=== PATIENT | female | born 1980 | race Caucasian/White ===

== ENCOUNTER 2018-06-02 20:31 | Emergency (ER) | payer OTHER ==
[~2018-06-02] VITALS: Ht 152.4 cm; Wt 111.1 kg
[2018-06-02] MEDS ORDERED: ACETAMINOPHEN-1 EAC1 PO (20:53)
[2018-06-02] MEDS ORDERED: NAPROSYN500 MG PO (20:53)
[2018-06-02] MEDS ORDERED: IRON325 (20:56)
[2018-06-02] MEDS ORDERED: LISINOPRIL20 MG (20:56)
[2018-06-02] MEDS ORDERED: EFFEXOR XR75 MG (20:57)
[2018-06-02 21:10] VITALS: BP 145/76
== END 2018-06-02 21:10 | disposition home or self-care (01) ==
LOC: M.ERS 20:31
DX: S16.1XXA Strain of muscle, fascia and tendon at neck level, initial encounter (principal); Z88.2 Allergy status to sulfonamides; Z88.8 Allergy status to other drugs, medicaments and biological substances; V89.2XXA Person injured in unspecified motor-vehicle accident, traffic, initial encounter; Y92.89 Other specified places as the place of occurrence of the external cause; Y93.89 Activity, other specified; Y99.8 Other external cause status